=== PATIENT | female | born 1955 | race Two or more races ===

== ENCOUNTER → 2025-02-03 | Outpatient (CLI) | payer OTHER, MEDICAID, SELFPAY ==
--- NOTE | 2025-02-03 15:45 | XR_ITS ---
Examination: Breast ultrasound, unilateral, right complete Date and time of exam: February 03, 2025 1514 hours INDICATIONS: 11:00 nodule 8 mm on right breast sonogram March 29, 2024 Technique: Real-time briceno scale ultrasonographic imaging performed right breast including all 4 quadrants as well as nipple retroareolar and axillary region. Findings: 11:00 nodule circumscribed 4 x 4 millimeter IMPRESSION: BI-RADS Category 2: Benign findings
== END | disposition home or self-care (01) ==
LOC: CDIM 15:03
PROVIDERS: Referring Provider Registered Nurse Community Health; Visit Provider Registered Nurse Community Health
DX: N63.11 Unspecified lump in the right breast, upper outer quadrant (principal)
CPT/HCPCS: 76641